=== PATIENT | female | born 1995 | race Caucasian/White ===

== ENCOUNTER 2018-04-24 17:42 | Emergency (ER) | payer OTHER ==
[2018-04-24] MEDS ORDERED: ONDANSETRON 4 MG/2 ML VIAL IVP ONE (18:29)
[2018-04-24] MEDS ORDERED: fentaNYL 100 MCG/2 ML INJ IVP ONE (18:29)
[2018-04-24] MEDS ORDERED: NS 1,000 ML IV ONE (18:29)
[2018-04-24] MEDS ORDERED: KETOROLAC 15 MG/1 ML SDV IVP ONE (18:39)
--- NOTE | 2018-04-24 18:40 | EDPHY ---
HPI/HX/ROS/PE/MDM Narrative: CHIEF COMPLAINT: Kidney infection HISTORY OF PRESENT ILLNESS: This patient is a 22 year old female arriving with her family for evaluation of symptoms related to a kidney infection diagnosed today. Her symptoms began yesterday including right-sided back pain, dysuria, hematuria, nausea, and fever. Her highest measured fever was 100.2. She has not vomited. She visited her PCP and was diagnosed with pyelonephritis and given a prescription for Cipro 500mg and Zofran. This afternoon she began feeling much worse, with significant pain and nausea. She was referred to the emergency department by her family practice physician's office. Currently, she feels slightly better. She has not taken any ibuprofen for pain relief. Patient denies any pelvic pain or unusual vaginal discharge. No new sexual partners. No chance of . Family history positive for kidney stones in her father. No chills, chest pain, shortness of breath, palpitations, vomiting, diarrhea, headache, lightheadedness. REVIEW OF SYSTEMS: A comprehensive 10 system review of systems is otherwise negative aside from elements mentioned in the history of present illness and medical decision making. PAST MEDICAL HISTORY: Mirena IUD in place. SOCIAL HISTORY: Mother and brother at bedside. PCP Dr. Fishman. Nonsmoker. Alcohol use in moderation. No tobacco or illicit drug use. VITAL SIGNS: Reviewed by me GENERAL: Well-developed, well-nourished, resting comfortably in no respiratory distress. HEENT: Atraumatic. Eyes: No icterus, no injection. Mouth: moist mucous membranes. No erythema or lesions. Neck: supple with no adenopathy. LUNGS: Clear to auscultation bilaterally, no wheezes, rhonchi or rales. CARDIAC: Regular rate and rhythm, no rubs, murmurs or gallops. ABDOMEN: Soft, nontender, nondistended, bowel sounds normal. BACK: Right CVA tenderness. EXTREMITIES: No trauma. No edema. Range of motion is normal throughout. NEURO: Alert and oriented, grossly nonfocal. SKIN: Warm and dry, no rash. PSYCHIATRIC: Normal mentation, no agitation. Portions of this note were transcribed by a medical cost consultant. I personally performed a history, physical exam, medical decision making, and confirmed accuracy of information the transcribed note. ED Course: 22 y/o female presents with worsening symptoms following a diagnosis of pyelonephritis earlier today. Currently, she is feeling slightly better but continues to complain of pain and nausea. IV established. Plan for labs including CBC, chemistries, UA, BHCG. Plan to administer 4mg IV Zofran, 75mcg IV Fentanyl, and 15mg IV Toradol for symptom relief. WBC elevated at 12,400. UA positive for UTI. Reassessed patient. she is feeling better. Plan to discharge home in good condition. She will continue to take Cipro as prescribed. She will take Zofran as needed for nausea, Tylenol and ibuprofen for pain. Follow up and return precautions discussed. She is comfortable with this plan. MDM: Differential diagnosis of the patient's flank pain was considered including but not limited to musculoskeletal causes, kidney stone, pyelonephritis, shingles, and intra-abdominal causes such as appendicitis. - Data Points Laboratory Results: Laboratory Results 04/24/18 18:52 04/24/18 18:52 04/24/18 04/24/18 04/24/18 18:52 18:52 18:52 WBC 12.43 10^3/uL H 10^3/uL (3.80-9.50) RBC 4.53 10^6/uL 10^6/uL (4.18-5.33) Hgb 13.6 g/dL g/dL (12.6-16.3) Hct 38.7 % % (38.0-47.0) MCV 85.4 fL fL (81.5-99.8) MCH 30.0 pg pg (27.9-34.1) MCHC 35.1 g/dL g/dL (32.4-36.7) RDW 11.9 % % (11.5-15.2) Plt Count 241 10^3/uL 10^3/uL (150-400) MPV 9.7 fL fL (8.7-11.7) Neut % (Auto) 81.1 % H % (39.3-74.2) Lymph % (Auto) 12.3 % L % (15.0-45.0) [place] % (Auto) 6.1 % % (4.5-13.0) Eos % (Auto) 0.0 % L % (0.6-7.6) Baso % (Auto) 0.2 % L % (0.3-1.7) Nucleat RBC Rel Count 0.0 % % (0.0-0.2) Absolute Neuts (auto) 10.07 10^3/uL H 10^3/uL (1.70-6.50) Absolute Lymphs (auto) 1.53 10^3/uL 10^3/uL (1.00-3.00) Absolute Monos (auto) 0.76 10^3/uL 10^3/uL (0.30-0.80) Absolute Eos (auto) 0.00 10^3/uL L 10^3/uL (0.03-0.40) Absolute Basos (auto) 0.03 10^3/uL 10^3/uL (0.02-0.10) Absolute Nucleated RBC 0.00 10^3/uL 10^3/uL (0-0.01) Immature Gran % 0.3 % % (0.0-1.1) Immature Gran # 0.04 10^3/uL 10^3/uL (0.00-0.10) Sodium 136 mEq/L mEq/L (135-145) Potassium 3.4 mEq/L mEq/L (3.3-5.0) Chloride 98 mEq/L mEq/L (97-110) Carbon Dioxide 27 mEq/l mEq/l (22-31) Anion Gap 11 mEq/L mEq/L (8-16) BUN 11 mg/dL mg/dL (7-23) Creatinine 0.7 mg/dL mg/dL (0.6-1.0) Estimated GFR > 60 Glucose 92 mg/dL mg/dL (70-100) Calcium 9.7 mg/dL mg/dL (8.5-10.4) Beta HCG, Qual NEGATIVE Urine Color Urine Appearance Urine pH Ur Specific [place] Urine Protein Urine Ketones Urine Blood Urine Nitrate Urine Bilirubin Urine Urobilinogen Ur Leukocyte Esterase Urine RBC Urine WBC Ur Epithelial Cells Urine Bacteria Urine Mucus Urine Glucose 04/24/18 17:55 WBC RBC Hgb Hct MCV MCH MCHC RDW Plt Count MPV Neut % (Auto) Lymph % (Auto) [place] % (Auto) Eos % (Auto) Baso % (Auto) Nucleat RBC Rel Count Absolute Neuts (auto) Absolute Lymphs (auto) Absolute Monos (auto) Absolute Eos (auto) Absolute Basos (auto) Absolute Nucleated RBC Immature Gran % Immature Gran # Sodium Potassium Chloride Carbon Dioxide Anion Gap BUN Creatinine Estimated GFR Glucose Calcium Beta HCG, Qual Urine Color YELLOW Urine Appearance MODERATELY TURBID Urine pH 6.0 (5.0-7.5) Ur Specific [place] 1.006 (1.002-1.030) Urine Protein 2+ H (NEGATIVE) Urine Ketones NEGATIVE (NEGATIVE) Urine Blood 3+ H (NEGATIVE) Urine Nitrate NEGATIVE (NEGATIVE) Urine Bilirubin NEGATIVE (NEGATIVE) Urine Urobilinogen NEGATIVE EU EU (0.2-1.0) Ur Leukocyte Esterase 3+ H (NEGATIVE) Urine RBC 50-182 /hpf H /hpf (0-3) Urine WBC 50-182 /hpf H /hpf (0-3) Ur Epithelial Cells TRACE /lpf /lpf (NONE-1+) Urine Bacteria 1+ /hpf H /hpf (NONE SEEN) Urine Mucus TRACE /lpf /lpf (NONE-1+) Urine Glucose NEGATIVE (NEGATIVE) Medications Given: Discontinued Medications Fentanyl (Sublimaze) 75 mcg IVP EDNOW ONE Stop: 04/24/18 18:30 Last Admin: 04/24/18 19:08 Dose: Not Given Sodium Chloride (Ns) 1,000 mls @ 0 mls/hr IV EDNOW ONE; Wide Open PRN Reason: Protocol Stop: 04/24/18 18:30 Last Admin: 04/24/18 19:03 Dose: 1,000 mls Ketorolac Tromethamine (Toradol) 15 mg IVP EDNOW ONE Stop: 04/24/18 18:40 Last Admin: 04/24/18 19:02 Dose: 15 mg Ondansetron HCl (Zofran) 4 mg IVP EDNOW ONE Stop: 04/24/18 18:30 Last Admin: 04/24/18 19:03 Dose: 4 mg General Time Seen by Provider: 04/24/18 17:57 Initial Vital Signs: Initial Vital Signs Temperature (C) 37.5 C 04/24/18 17:48 Heart Rate 122 H 04/24/18 17:48 Respiratory Rate 16 04/24/18 17:48 Blood Pressure 111/82 H 04/24/18 17:48 O2 Sat (%) 96 04/24/18 17:48 O2 Delivery Mode Room Air Allergies/Adverse Reactions: Penicillins Allergy (Verified 09/01/15 13:19) Sulfa (Sulfonamide Antibiotics) Allergy (Verified 04/24/18 17:47) Home Medications: Medication Instructions Recorded Ciprofloxacin 04/24/18 Ondansetron 04/24/18 Departure - Departure Disposition: Home, Routine, Self-Care Clinical Impression: Acute pyelonephritis Urinary tract infection Qualifiers: Urinary tract infection type: acute pyelonephritis Qualified Code(s): N10 - Acute pyelonephritis Condition: Good Instructions: Urinary Tract Infection in Women (ED), Kidney Infection (ED) Additional Instructions: Please take medications as prescribed. Ciprofloxacin 500 mg by mouth 2 times a day. Okay to take Zofran as needed for any nausea or vomiting. Please take Tylenol or ibuprofen as needed for pain. Adult Pain & Fever Control: We recommend Acetaminophen (Tylenol) and Ibuprofen (Motrin,Advil) for pain and fever control. When fever is high or pain severe, both drugs can be used at the same time, but at different intervals. Please note the time differences. Your dose is: Acetaminophen 650mg every 4 to 6 hours Ibuprofen 400mg every 6-8hours with food Please follow up with primary care physician if you're not improving as expected over the next several days. Be seen sooner if you continue to have difficulty urinating, blood in urine, fever, or significant pain despite starting on your antibiotics. Referrals: Kelley Fishman MD [Primary Care Provider] - As per Instructions Report Scribed for: Yelena Gamboa Report Scribed by: Fatimah Cox Date of Report: 04/24/18 Time of Report: 19:41
[2018-04-24 19:03] LABS: PLATELET COUNT 241 10^3/uL (150-400)
[2018-04-24 19:38] VITALS: BP 111/72
== END 2018-04-24 20:23 | disposition home or self-care (01) ==
DX: N10 Acute pyelonephritis (principal); E86.9 Volume depletion, unspecified
CPT/HCPCS: 96374; J1885; J2405